=== PATIENT | male | born 1955 | race Caucasian/White ===

== ENCOUNTER 2016-07-27 23:16 | Inpatient (IN) | payer MEDICAID, OTHER ==
[~2016-07-27] VITALS: Ht 170.2 cm; Wt 80.7 kg
[2016-07-27 23:24] VITALS: BP 149/96
--- NOTE | 2016-07-27 23:54 | NUR ---
AMBULATED TO ER BED 1
--- NOTE | 2016-07-28 00:08 | NUR ---
DR. CARDENAS AT PT BEDSIDE SEEING PT.
--- NOTE | 2016-07-28 00:09 | NUR ---
PATIENT PRESENTS TO ED WITH C.O. OF LEFT FOOT PAIN AND DIARRHEA. NOTED LEFT SECOND TOE BLACK, WOUND PARTH. PT DENIES N/V; SKIN IS PINK/WARM/DRY; AAOX4 WITH EVEN AND STEADY GAIT; LUNGS CLEAR BL; HR EVEN AND REGULAR; PT DENIES ANY FEVER, CP, SOB, OR COUGH AT THIS TIME; PATIENT STATES PAIN OF 4/10 AT THIS TIME; VSS; PATIENT POSITIONED FOR COMFORT; HOB ELEVATED; BEDRAILS UP X2; BED DOWN. ER MD MADE AWARE OF PT STATUS.
[2016-07-28] MEDS ORDERED: CLINDAMYCIN 900 MG in DEXTROSE 5% 100 ML IV ONE (00:20)
[2016-07-28] MEDS ORDERED: KETOROLAC 30 MG/ML VIAL IVP ONE (00:20)
[2016-07-28] MEDS ORDERED: NACL 0.9% 1,000 ML IV ONE (00:20)
[2016-07-28] MEDS ORDERED: CLINDAMYCIN 900 MG/6 ML VIAL IV ONE ×2 (00:53→06:21)
--- NOTE | 2016-07-28 01:58 | NUR ---
BP 180/107, DENIES PAIN AT THIS TIME, ASYMPTOMATIC. PT RESTING COMFORTABLY ON BED. NO SOB/NO DISTRESS NOTED. DR. CARDENAS AWARE.
--- NOTE | 2016-07-28 02:22 | NUR ---
DR. CARDENAS AWARE OF PT BP AT THIS TIME OF 180/109, NEW ORDERS RECIEVED.
[2016-07-28] MEDS ORDERED: cloNIDine 0.1 MG TAB PO ONE (02:25)
[2016-07-28] MEDS ORDERED: INSULIN HUMAN REGULAR 100 UNITS/ML 10 ML VIAL IVP ONE (02:25)
[2016-07-28] MEDS ORDERED: NACL 0.9% 500 ML IV ONE (02:25)
[2016-07-28] MEDS ORDERED: MORPHINE SULFATE 2 MG/ML SYR IVP PRN (02:30)
[2016-07-28] MEDS ORDERED: ONDANSETRON 4 MG/2 ML VIAL IVP PRN (02:30)
[2016-07-28] MEDS ORDERED: ACETAMINOPHEN 325 MG TAB PO PRN (02:30)
[2016-07-28] MEDS ORDERED: NACL 0.9% 1,000 ML IV SCH (02:30)
[2016-07-28] MEDS ORDERED: DEXTROSE 50% 50 ML SYR IVP PRN (02:35)
--- NOTE | 2016-07-28 02:40 | NUR ---
BLOOD GLUCOSE CHECKED, NOTED 226. DR. CARDENAS AWARE. RECEIVED CHANGE IN ORDERS.
--- NOTE | 2016-07-28 02:42 | NUR ---
Patient will be admitted to care of DR. REYNOLDS. Admited to . Will go to room. Belongings list completed. Report to .
--- NOTE | 2016-07-28 02:58 | NUR ---
PT TRANSFERRED TO FLOOR VIA GURNEY ACCOMPANIED BY RN AND EMT ON A GUARDED CONDITION.
[2016-07-28 03:05] VITALS: BP 168/95
[2016-07-28] MEDS: DEXT 5% /NACL 0.9% 1,000 ML IV SCH ×3 (03:05→22:44)
--- NOTE | 2016-07-28 03:05 | NUR ---
PATIENT TRANSFERRED FROM ER VIA GURNEY. PATIENT IS A 60-YEAR-OLD, MALE, DIAGNOSIS: GANGRENOUS LEFT TOE. NO RESPIRATORY DISTRESS, SOB, OR DISCOMFORT. INITIAL ASSESSMENT AND BODY CHECK DONE. PATIENT IS AOX4, WOUND NOTED TO LEFT SECOND TOE, IV ACCESS TO RIGHT FOREARM 22G, PATENT. DISCUSSED PLAN OF CARE, MEDICATION REGIMENT, AND PAIN MANAGEMENT WITH PATIENT. PLACED PATIENT ON SAFETY/FALL PRECAUTIONS. CALL LIGHT LEFT WITHIN REACH, WILL CONTINUE TO MONITOR.
[2016-07-28 04:00] VITALS: BP 137/83
--- NOTE | 2016-07-28 06:04 | NUR ---
PATIENT SLEEPING. NO RESPIRATORY DISTRESS, SOB, OR DISCOMFORT. CALL LIGHT LEFT WITHIN REACH, WILL CONTINUE TO MONITOR.
[2016-07-28] MEDS: CLINDAMYCIN 900 MG in DEXTROSE 5% 100 ML IV SCH ×3 (06:22→18:24)
[2016-07-28] MEDS: BLOOD GLUCOSE MONITORING 1 DEV DEV FS SCH ×4 (06:27→20:09)
[2016-07-28] MEDS: INSULIN ASPART SLIDING SCALE 100 UNITS/ML VIAL SUBQ PRN ×3 (06:28→20:11)
--- NOTE | 2016-07-28 07:10 | NUR ---
REPORT GIVEN TO DAY NURSEJOSEPHINE. PATIENT RESTING IN BED, STABLE. NO RESPIRATORY DISTRESS, SOB, OR DISCOMFORT. ALL NEEDS ATTENDED TO DURING SHIFT, CALL LIGHT LEFT WITHIN REACH.
--- NOTE | 2016-07-28 07:30 | NUR ---
RECEIVED PT RESTING COMFORTABLY IN BED, AAOX4, ABLE TO VERBALIZE NEEDS; LEFT 2ND TOE GANGRENOUS, NO DRAINAGE NOTED AT THIS TIME, NO C/O PAIN OR S/S ACUTE DISTRESS. ROUTINE/PLAN OF CARE DISCUSSED AND REVIEWED, PT VERBALIZES UNDERSTANDING AND COMPLIANCE; PT SEEN AND ASSESSED BY DR OWENS AND DR BRANDON AT BEDSIDE. FAMILY MEMBER PRESENT. IVF INFUSING WELL TO RIGHT FA, SITE ASYMPTOMATIC. SAFETY PRECAUTIONS OBSERVED AND MAINTAINED, CALL LIGHT IN REACH. WILL CONTINUE TO MONITOR.
[2016-07-28 08:00] VITALS: BP 138/87
[2016-07-28] MEDS: DOCUSATE SODIUM 100 MG GELCAP PO SCH (09:00)
[2016-07-28] MEDS: FAMOTIDINE 20 MG TAB PO SCH (09:09)
[2016-07-28] MEDS: SACCHAROMYCES 250 MG CAP PO SCH ×2 (09:09→20:08)
--- NOTE | 2016-07-28 09:13 | NUR ---
DR BRANDON AT BEDSIDE ASSESSING PT. PT REFUSED COLACE AT THIS TIME, STATES HE HAD DIARRHEA YESTERDAY; MD AWARE. REMAINING SCHEDULED MEDS GIVEN ORDERED WITH EDUCATION, PT TOLERATED WELL. WILL CONTINUE TO MONITOR.
--- NOTE | 2016-07-28 10:02 | NUR ---
PATIENT HAS BEEN SCREENED AND CATEGORIZED HIGH NUTRITION RISK. PATIENT WILL BE SEEN WITHIN 1-2 DAYS OF ADMISSION. 07/28/16-07/29/[address]
--- NOTE | 2016-07-28 10:35 | NUR ---
PT EVALUATED BY DR NESBITT AT BEDSIDE, DISCUSSED NEED FOR LEFT 2ND TOE AMPUTATION USING CELL REPAIRER PHONE, ALL QUESTIONS AND CONCERNS ADDRESSED WITH PRESENT. PT VERBALIZES UNDERSTANDING AND COMPLIANCE, CONSENT FORM SIGNED. PREOP CHECKLIST DONE. Addendum: 07/28/16 at 1047 by Allyssa Macedo RN ADD TO ENTRY: AWARE OF PATIENT TAKING PO MEDICATIONS THIS AM.
--- NOTE | 2016-07-28 10:51 | NUR ---
PT TAKEN TO OR AT THIS TIME IN STABLE CONDITION.
[2016-07-28] MEDS ORDERED: MIDAZOLAM 2 MG/2 ML VIAL ONE (11:03)
[2016-07-28] MEDS ORDERED: fentaNYL 0.05 MG/ML VIAL ONE (11:03)
[2016-07-28] MEDS ORDERED: BUPIVACAINE-MPF 0.5% 30 ML VIAL INJ ONE (11:05)
[2016-07-28 12:30] VITALS: BP 134/84
--- NOTE | 2016-07-28 12:30 | NUR ---
PT RETURNED FROM OR AT THIS TIME IN STABLE CONDITION, VSS, DENIES ANY PAIN. S/P LEFT 2ND TOE AMPUTATION, DRESSING CLEAN AND INTACT. POSTOP EDUCATION GIVEN, PT VERBALIZES UNDERSTANDING. AT BEDSIDE. WILL CONTINUE TO MONITOR.
[2016-07-28] MEDS ORDERED: MAG SULF 2000 MG/WATER PREMIX 50 ML IV SCH (14:00)
--- NOTE | 2016-07-28 15:10 | NUR ---
CONDITION REMAINS STABLE, PT TOLERATING DIET WELL. IV TUBING SEEN DISPLACED, INSTRUCTED PT TO REFRAIN FROM TOUCHING EQUIPMENT AND TO CALL STAFF FOR ANY ASSISTANCE NEEDED. CALL LIGHT WITHIN REACH. PRESENT. BOTH VERBALIZE UNDERSTANDING AND COMPLIANCE. WILL CONTINUE TO MONITOR.
[2016-07-28] MEDS: HYDROcodone/APAP 7.5/325 MG 1 TAB PO PRN (15:29)
[2016-07-28 15:55] VITALS: BP 140/81
[2016-07-28] MEDS: MORPHINE SULFATE 2 MG/ML SYR IVP PRN (16:50)
--- NOTE | 2016-07-28 16:50 | NUR ---
ADMINISTERED MORPHINE IVP FOR C/O SEVERE LEFT FOOT PAIN, SEE PAIN ASSESSMENT. NARCOTIC EDUCATION GIVEN.
--- NOTE | 2016-07-28 19:09 | NUR ---
CONDITION STABLE, ENDORSED PLAN OF CARE TO ORACLE FUSION MIDDLEWARE ARCHITECT RN.
--- NOTE | 2016-07-28 19:15 | NUR ---
RECEIVED REPORT FROM DAY NURSEJOSEPHINE. PATIENT RESTING IN BED, WATCHING TELEVISION, FAMILY AT BEDSIDE. NO RESPIRATORY DISTRESS, SOB, OR DISCOMFORT. INITIAL ASSESSMENT AND BODY CHECK DONE. PATIENT IS AOX4, IV ACCESS TO RIGHT FOREARM 20G, PATENT. PATIENT IS S/P LEFT SECOND TOE AMPUTATION (07/28/16), COVERED WITH DRESSING; DRY & INTACT. PATIENT DENIES ANY PAIN AT THIS TIME. DISCUSSED PLAN OF CARE, MEDICATION REGIMENT, AND PAIN MANAGEMENT WITH PATIENT AND FAMILY. VERBALIZED UNDERSTANDING. PLACED PATIENT ON SAFETY/FALL PRECAUTIONS. CALL LIGHT LEFT WITHIN REACH, WILL CONTINUE TO MONITOR.
--- NOTE | 2016-07-28 22:04 | NUR ---
PATIENT IN BED, SLEEPING. NO RESPIRATORY DISTRESS, SOB, OR DISCOMFORT. CALL LIGHT LEFT WITHIN REACH, WILL CONTINUE TO MONITOR.
[2016-07-29] VITALS: BP 155/90
[2016-07-29] MEDS: MORPHINE SULFATE 2 MG/ML SYR IVP PRN (00:02)
[2016-07-29] MEDS: CLINDAMYCIN 900 MG in DEXTROSE 5% 100 ML IV SCH ×3 (00:02→11:27)
--- NOTE | 2016-07-29 00:51 | NUR ---
PATIENT ASLEEP. NO RESPIRATORY DISTRESS, SOB, OR DISCOMFORT. CALL LIGHT LEFT WITHIN REACH, WILL CONTINUE TO MONITOR.
--- NOTE | 2016-07-29 03:26 | NUR ---
PATIENT SLEEPING. NO RESPIRATORY DISTRESS, SOB, OR DISCOMFORT. CALL LIGHT LEFT WITHIN REACH, WILL CONTINUE TO MONITOR.
--- NOTE | 2016-07-29 06:06 | NUR ---
PATIENT IN BED, ASLEEP. NO RESPIRATORY DISTRESS, SOB, OR DISCOMFORT. CALL LIGHT LEFT WITHIN REACH, WILL CONTINUE TO MONITOR.
[2016-07-29] MEDS: BLOOD GLUCOSE MONITORING 1 DEV DEV FS SCH ×3 (06:29→16:55)
--- NOTE | 2016-07-29 07:06 | NUR ---
REPORT GIVEN TO DAY NURSECARMINA. PATIENT RESTING IN BED, STABLE. NO RESPIRATORY DISTRESS, SOB, OR DISCOMFORT. ALL NEEDS ATTENDED TO DURING SHIFT, CALL LIGHT LEFT WITHIN REACH.
--- NOTE | 2016-07-29 07:07 | NUR ---
RECEIVED REPORT FROM THE MEDICAL DRIVER NURSE AT BEDSIDE FOR CONTINUITY OF CARE. PT IS AWAKE AND ALERT. I INTRODUCED MYSELF AND UPDATED THE BOARD. HE IS YORUBA SPEAKING. PT IS MS. NOTED THE URINAL AT BEDSIDE. NOTED THE IV ON HIS R FA 22G WITH D5NS INFUSING AT 100ML. NOTED HIS L FOOT BANDAGED UP. PT S/P L TOE AMPUTATION YESTERDAY. BANDAGE STILL INTACT, NO DRAINAGE NOTED. WILL BE BACK TO CONTINUE ASSESSING PT.
--- NOTE | 2016-07-29 07:40 | NUR ---
PT V/S SLIGHTLY ELEVATED. PT C/O OF PAIN IN HIS FOOT. ASKED PT IF HE WOULD LIKE PAIN MEDS AND HE SAID "MAYBE". I WILL LOOK TO SEE WHEN HE HAD HIS LAST PAIN MEDICATION AND WHEN THE NEXT ONE IS DUE. DRS CAME IN TO SEE HIM. STATED HE WILL TALK TO THE SURGEON AND SEE ABOUT DC OR AT LEAST PLANS FOR TODAY. ALL NEEDS MET. ALL SAFETY MEASURES IN PLACE. WILL BE BACK WITH MORNING MEDS.
[2016-07-29 08:00] VITALS: BP 152/95
[2016-07-29] MEDS: DEXT 5% /NACL 0.9% 1,000 ML IV SCH ×2 (08:34→11:25)
[2016-07-29] MEDS: HYDROcodone/APAP 7.5/325 MG 1 TAB PO PRN (08:35)
[2016-07-29] MEDS: FAMOTIDINE 20 MG TAB PO SCH (08:35)
[2016-07-29] MEDS: SACCHAROMYCES 250 MG CAP PO SCH (08:35)
[2016-07-29] MEDS: DOCUSATE SODIUM 100 MG GELCAP PO SCH (08:35)
--- NOTE | 2016-07-29 08:36 | NUR ---
ADMINISTERED MORNING MEDS. PT TOLERATED WELL. NO OTHER COMPLAINTS. NO SIGNS OF DISTRESS. ALL SAFETY MEASURES IN PLACE. WILL CONTINUE TO MONITOR PT.
--- NOTE | 2016-07-29 08:50 | NUR ---
WOUND CARE NOTES: UNABLE TO ASSESS WOUND AT THIS TIME, S/P AMPUTATION 06/27/16. DRESSING DRY AND INTACT. NO COMPLAINTS OF PAIN MADE AT THIS TIME. WILL COORDINATE WITH PODIATRY REGARDING DRESSING CHANGE.
--- NOTE | 2016-07-29 10:19 | NUR ---
PT IS RESTING COMFORTABLY. NO SIGNS OF DISTRESS. NO COMPLAINTS. NO PAIN. ALL SAFETY MEASURES IN PLACE. WILL CONTINUE TO MONITOR PT.
--- NOTE | 2016-07-29 11:05 | NUR ---
PT WITH P.T. DOING EVAL. PT IS WALKING GREAT. NO COMPLAINTS. NO SIGNS OF DISTRESS.
[2016-07-29] MEDS: INSULIN ASPART SLIDING SCALE 100 UNITS/ML VIAL SUBQ PRN ×2 (11:33→16:56)
--- NOTE | 2016-07-29 11:58 | NUR ---
PT'S SPOUSE IS HERE. PT IS DOING WELL. NO SIGNS OF DISTRESS OR PAIN. NO COMPLAINTS. WILL CONTINUE TO MONITOR PT.
--- NOTE | 2016-07-29 12:02 | NUR ---
07/29/16 RD INITIAL ASSESSMENT COMPLETED PLEASE REFER TO NUTRITION ASSESSMENT UNDER CARE ACTIVITY FOR ESTIMATED NUTRITIONAL NEEDS. RD RECOMMENDATIONS: 1. CONTINUE CCHO 60 GM DIET TOLERATED PER MD 2. RECOMMEND ADDING CARDIAC TO CURRENT DIET ORDER D/T ELEVATED BP LEVELS AND HYPERLIPIDEMIA 3. RD PROVIDED PT WITH DM DIET EDUCATION 4. RD WILL F/U 3-5 DAYS; MODERATE RISK. LEANDER [address]
--- NOTE | 2016-07-29 13:30 | NUR ---
IV BEEPING. FLUSHED IV AND RESTARTED IV INFUSION. PT WANTED TO KNOW IF HE CAN HAVE A BANANA AND SOME YOGURT THAT BROUGHT. WILL F/U WITH AND SEE.
[2016-07-29] MEDS ORDERED: NORCO 325 MG-7.1 TAB PO (14:54)
[2016-07-29] MEDS ORDERED: FLORASTOR 33 MG1 CAP PO (14:54)
[2016-07-29] MEDS ORDERED: METFORMIN850 MG PO (14:54)
[2016-07-29] MEDS ORDERED: CLEOCIN HCL300 MG PO (14:54)
--- NOTE | 2016-07-29 15:00 | NUR ---
PT RESTING COMFORTABLY WITH FAMILY AT BEDSIDE. NO SIGNS OF DISTRESS. PT HAS NO COMPLAINTS. WILL CONTINUE TO MONITOR PT.
[2016-07-29 16:00] VITALS: BP 177/102
--- NOTE | 2016-07-29 16:40 | NUR ---
WENT OVER DISCHARGE INFORMATION/EDUCATION WITH CICI OREILLY. PT AND FAMILY VERBALIZED UNDERSTANDING RE PRESCRIPTIONS, F/U APPTS, AND EDUCATION RE. DIABETES, LIVING WITH AMPUTATION. ANSWERED ALL QUESTIONS. REMOVED ALL IDENTIFICATION BANDS, REMOVED IV CANNULA INTACT, PUT ON THE NEW POST OP BOOT. EDUCATED PT HOW TO WEAR AND WALK. HOW TO TAKE A SHOWER WITHOUT GETTING IT WET. PT AND FAMILY VERBALIZED UNDERSTANDING. WILL CHANGE INTO HIS PERSONAL CLOTHES AND WAIT FOR HIS RIDE. GAVE PT RX AND PACKET TO TAKE HOME AND TO HIS APPT. WILL LET ME KNOW WHEN HIS RIDE GETS HERE.
--- NOTE | 2016-07-29 17:10 | NUR ---
WHEELED PT OUT TO THE FRONT DRIVE WAY WITH HIS FAMILY AND HIS PERSONAL BELONGINGS. PT IS IN STABLE CONDITION.
== END 2016-07-29 17:10 | disposition home or self-care (01) | DRG 239 ==
LOC: MED 23:16 → MTU 07-28 02:20 → OBSVTOIN 07-28 02:20 → INTOOBSV 07-28 02:20 → MTU 07-28 03:00
PROVIDERS: ADMIT Family Medicine; ATTEND Family Medicine
PROC: 0Y6N0ZB Detachment at Left Foot, Partial 2nd Ray, Open Approach (ICD-10-PCS; principal; 2016-07-28 10:45)
DX: E11.52 Type 2 diabetes mellitus with diabetic peripheral angiopathy with gangrene (principal); N17.0 Acute kidney failure with tubular necrosis; K85.90 Acute pancreatitis without necrosis or infection, unspecified; E43 Unspecified severe protein-calorie malnutrition; M86.8X7 Other osteomyelitis, ankle and foot; L03.032 Cellulitis of left toe; E11.69 Type 2 diabetes mellitus with other specified complication; D63.8 Anemia in other chronic diseases classified elsewhere; E11.40 Type 2 diabetes mellitus with diabetic neuropathy, unspecified; E11.65 Type 2 diabetes mellitus with hyperglycemia; I10 Essential (primary) hypertension; E87.8 Other disorders of electrolyte and fluid balance, not elsewhere classified; E83.42 Hypomagnesemia; E78.5 Hyperlipidemia, unspecified; E83.51 Hypocalcemia; Z68.27 Body mass index [BMI] 27.0-27.9, adult; Z83.3 Family history of diabetes mellitus; S92.342D Displaced fracture of fourth metatarsal bone, left foot, subsequent encounter for fracture with routine healing; X58.XXXD Exposure to other specified factors, subsequent encounter